=== PATIENT | female | born 1940 | race Caucasian/White ===

== ENCOUNTER → 2018-06-10 | Outpatient (CLI) | payer OTHER | LOC: RAD 01:22 | DX: Z12.31 Encounter for screening mammogram for malignant neoplasm of breast (principal) ==

== ENCOUNTER 2018-12-21 12:08 | Emergency (ER) | payer OTHER ==
[~2018-12-21] VITALS: Ht 162.6 cm; Wt 61.2 kg
[2018-12-21 12:49] LABS: ABSOLUTE NEUTROPHILS 3.9 thou/uL (1.4-8.2); BASOPHILS 1.5 % (0.0-2.0); EOSINOPHILS 3.4 % (0.0-3.0); HEMATOCRIT 36.2 % (37.0-47.0); LYMPHOCYTES 17.5 % (24.0-44.0); MCH 27.6 pg (26.0-34.0); MCHC 33.1 g/dL (28.0-37.0); MCV 83.3 fL (80.0-100.0); MONOCYTES 9.5 % (1.0-8.0); PLATELET COUNT 271 thou/uL (150-400); POLYS 68.1 % (36.0-66.0); RBC 4.34 mil/uL (4.20-5.00); RDW 13.7 % (10.5-14.5); WBC 5.7 thou/uL (4.0-11.0)
[2018-12-21 12:53] LABS: CALCIUM 9.2 mg/dL (8.5-10.1); CREATININE 1.3 mg/dL (0.6-1.0); POTASSIUM 4.4 mmol/L (3.5-5.1)
[2018-12-21] MEDS ORDERED: LOSARTAN POTASS50 MG PO (13:20)
[2018-12-21] MEDS ORDERED: FLUVOXAMINE MA100 MG PO (13:20)
[2018-12-21] MEDS ORDERED: VENTOLIN HFA 1818 GM INH (13:21)
[2018-12-21 14:09] LABS: URINE BILIRUBIN NEGATIVE (Negative); URINE BLOOD NEGATIVE (Negative); URINE CLARITY CLEAR; URINE COLOR YELLOW; URINE GLUCOSE-RANDOM* NEGATIVE (Negative); URINE KETONES NEGATIVE (Negative); URINE LEUKOCYTES-REFLEX NEGATIVE (Negative); URINE NITRITE-REFLEX NEGATIVE (Negative); URINE PROTEIN (DIPSTICK) NEGATIVE (Negative); URINE SPECIFIC GRAVITY 1.025 (1.005-1.035); URINE UROBILINOGEN 0.2 E.U./dl (0.2-1.0)
[2018-12-21 14:13] VITALS: BP 131/59
--- NOTE | 2018-12-22 08:11 | EKG ---
[place] [address] [facility] [email or web address] [address] ELECTROCARDIOGRAM REPORT Name: FATOUMATA DOLL Room #: DEP [facility]#: [id number] ������������������ Admission: 12/21/18 ������������������ Attend Phys: Discharge: 12/21/18 ������������������ Date of : 44 Report #: [id number] ����������������������������������������������������������������� [id number] THIS REPORT FOR: //name// [facility] ED Test Date: 2018-12-21 Test Time: 12:47:04 Pat Name: FATOUMATA DOLL Department: Room: Gender: F [employer] Manager: Rex BISWAS RN : 1940 Requested By: Dariana Griffith Order Number: [id number] MD: Barry Tang Measurements Intervals [place] Rate: 56 P: 69 [place]: 139 QRS: 34 QRSD: 78 T: 41 QT: 409 QTc: 395 Interpretive Statements Sinus rhythm Abnormal R-wave progression, early transition Compared to ECG 08/09/1998 12:40:00 ST (T wave) deviation no longer present Electronically Signed On 12-22-2018 8:11:48 CDT by Barry Tang [email or web address] ��������������������������������������������� <ELECTRONICALLY SIGNED> ���������������������������������������� By: Barry Tang MD, [facility] ��������������������������������������������� 12/22/18 0811 [id number] Barry Tang MD, [facility] /EPI
== END 2018-12-21 14:31 | disposition home or self-care (01) ==
LOC: ER 12:08
PROVIDERS: Emergency Medicine
DX: R20.2 Paresthesia of skin (principal); Z88.8 Allergy status to other drugs, medicaments and biological substances

== ENCOUNTER → 2019-06-14 | Outpatient (CLI) | payer OTHER ==
[~2019-06-14] MED LIST: FLUVOXAMINE MA100 MG PO; LOSARTAN POTASS50 MG PO; VENTOLIN HFA 1818 GM INH
== END ==
LOC: RAD 01:29
DX: Z12.31 Encounter for screening mammogram for malignant neoplasm of breast (principal)

== ENCOUNTER → 2020-06-15 | Outpatient (CLI) | payer OTHER | LOC: BC 11:06 | PROVIDERS: ATTEND Internal Medicine | DX: Z12.31 Encounter for screening mammogram for malignant neoplasm of breast (principal) ==

== ENCOUNTER → 2021-06-18 | Outpatient (CLI) | payer OTHER | LOC: BC 13:17 | PROVIDERS: ATTEND Internal Medicine | DX: Z12.31 Encounter for screening mammogram for malignant neoplasm of breast (principal) ==

== ENCOUNTER 2021-08-21 10:50 | Emergency (ER) | payer OTHER | END 2021-08-21 12:13 | disposition left against medical advice (07) | LOC: ER 10:50 | DX: M25.579 Pain in unspecified ankle and joints of unspecified foot (principal); Z53.21 Procedure and treatment not carried out due to patient leaving prior to being seen by health care provider ==